=== PATIENT | female | born 1980 | race Caucasian/White ===

== ENCOUNTER 2017-12-14 20:33 | Emergency (ER) | payer MEDICAID, OTHER ==
[2017-12-14] MEDS ORDERED: Ondansetron ODT TAB* 4 MG PO ONE (21:47)
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
[2017-12-14] MEDS ORDERED: O ndansetron ODT 4MG 2TAB PRPK 4 MG PAK PO ONE (23:05)
[2017-12-14 23:21] VITALS: BP 94/57
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
== END 2017-12-14 23:20 | disposition home or self-care (01) ==
LOC: ED 20:33
DX: S09.90XA Unspecified injury of head, initial encounter (principal); M54.9 Dorsalgia, unspecified; S00.93XA Contusion of unspecified part of head, initial encounter; H53.8 Other visual disturbances; Z87.891 Personal history of nicotine dependence; Y09 Assault by unspecified means; Y92.9 Unspecified place or not applicable; F17.210 Nicotine dependence, cigarettes, uncomplicated
CPT/HCPCS: 70450; 70486; 72131; 99282; A9270-GY

== ENCOUNTER 2018-01-30 11:15 | Emergency (ER) | payer OTHER ==
[2018-01-30] MEDS ORDERED: Naproxen TAB* 250 MG PO ONE (12:23)
--- NOTE | 2018-01-30 12:54 | RAD ---
HISTORY: injury, right shoulder COMPARISONS: None VIEWS: 4, Frontal internal rotation, external rotation, outlet, and axillary views of the right shoulder FINDINGS: BONE DENSITY: Normal. BONES: There is no displaced fracture. JOINTS: There is no arthropathy. ALIGNMENT: There is no dislocation. SOFT TISSUES: Unremarkable. OTHER FINDINGS: None. IMPRESSION: NO ACUTE OSSEOUS INJURY. IF SYMPTOMS PERSIST, RECOMMEND REPEAT IMAGING.
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
[2018-01-30 15:00] VITALS: BP 95/52
== END 2018-01-30 15:00 | disposition home or self-care (01) ==
LOC: ED 11:15
DX: S39.012A Strain of muscle, fascia and tendon of lower back, initial encounter (principal); F41.9 Anxiety disorder, unspecified; F17.210 Nicotine dependence, cigarettes, uncomplicated; M77.9 Enthesopathy, unspecified; M54.5 Low back pain; X50.0XXA Overexertion from strenuous movement or load, initial encounter; X50.9XXA Other and unspecified overexertion or strenuous movements or postures, initial encounter; Y92.129 Unspecified place in nursing home as the place of occurrence of the external cause
CPT/HCPCS: 99282; A9270-GY